=== PATIENT | male | born 1960 | race Two or more races ===

== ENCOUNTER 2024-01-05 11:51 | Emergency (ER) | payer MEDICAID, OTHER ==
[~2024-01-05] VITALS: Ht 170.2 cm; Wt 81.0 kg
[2024-01-05 11:57] VITALS: O2SAT 100
[2024-01-05] MEDS ORDERED: LIDO700A15 TP (13:34)
[2024-01-05] MEDS ORDERED: METH-653 MT (13:34)
[2024-01-05 14:27] VITALS: BP 167/98; PULSE 79; RESP 18; TEMP 36.78072; O2SAT 99
== END 2024-01-05 14:29 | disposition home or self-care (01) ==
LOC: ER 11:51
DX: M54.2 Cervicalgia (principal); M54.50 Low back pain, unspecified; E11.9 Type 2 diabetes mellitus without complications; I10 Essential (primary) hypertension; E78.00 Pure hypercholesterolemia, unspecified; V49.49XA Driver injured in collision with other motor vehicles in traffic accident, initial encounter; Y93.89 Activity, other specified; Y92.89 Other specified places as the place of occurrence of the external cause; Y99.8 Other external cause status
CPT/HCPCS: 99283